=== PATIENT | female | born 1950 | race Caucasian/White ===

== ENCOUNTER 2022-04-18 16:30 | Emergency (ER) | payer BC, SELFPAY ==
--- NOTE | ~2022-04-18 | XR_ITS ---
EXAM: XR wrist LT 2V DATE: 04/18/2022 19:51 HISTORY: post-reduction . COMPARISON: Same date at 4:57 PM. FINDINGS: Decreased mineralization. Displaced ulnar styloid fracture. Transverse fracture of the dis nathalie left radial metaphysis, with one half shaft width posterior displacement and approximately 20 deg juan posterior angulation. No lytic or blastic lesion. Scattered degenerative change most severe at t he trapeziometacarpal joint. No erosion or periosteal change. Soft tissues within normal limits. IMPRESSION: Improved alignment post reduction, with residual posterior displacement and angulation. Reviewed, dictated and finalized at location K. IMPRESSION: Improved alignment post reduction, with residual posterior displace ment and angulation.
--- NOTE | ~2022-04-18 | XR_ITS ---
EXAM: XR wrist LT 2V DATE: 04/18/2022 20:41 HISTORY: post-reduction #2 . COMPARISON: Same date at 7:45 PM. FINDINGS/IMPRESSION: Unchanged alignment of the distal left radial fracture with persistent posterior angulation and displacement. Reviewed, dictated and finalized at location K.
--- NOTE | ~2022-04-18 | XR_ITS ---
XR wrist LT 2V 04/18/2022 17:06 Indication: Left wrist pain after fall Procedure: 2 views left wrist Comparison: No prior studies for comparison. Findings: There is a comminuted likely intra-articular fracture distal aspect of the radius with dors al displacement and angulation. Lateral view limited by rotation. There is an ulnar styloid avulsion fracture. 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 Impression: 1: Comminuted, likely intra-articular fracture distal aspect of the radius with dorsal displacement a nd angulation. 2: Ulnar styloid avulsion fracture. Reviewed, dictated and finalized at location A. Impression: 1: Comminuted, likely intra-articular fracture distal aspect of the radius with dorsal displacement and angulation. 2: Ulnar styloid avulsion fracture.
[2022-04-18 16:49] VITALS: BP 166/66; PULSE 83; RESP 18; TEMP 36.6; O2SAT 100
--- NOTE | 2022-04-18 18:11 | ED.UPPEXIN ---
HPI - Extremity Injury (Upper) General Chief Complaint: Extremity Injury, Upper Stated Complaint: L arm injury Time Seen by Provider: 04/18/22 17:49 Source: patient Mode of arrival: ambulatory Limitations: no limitations History of Present Illness HPI narrative: This is a 71-year-old female that presents to the emergency department for left wrist injury sustained just prior to arrival. Reports she on a stool that was maybe a foot high. She fell off of the stool and caught herself with her left wrist. Reports swelling and pain to the area. She did not hit her head or lose consciousness. Reports decreased range of motion due to pain. Denies numbness. Related Data Allergies Allergy/AdvReac Type Severity Reaction Status Date / Time No Known Allergies Allergy Verified 04/18/22 17:51 Review of Systems Review of Systems: CONSTITUTIONAL: Denies fever MUSCULOSKELETAL: Reports joint pain, and myalgia. NEUROLOGIC: Denies numbness All systems reviewed & are unremarkable except as noted in HPI and below PMFSH Past Medical History Medical History (Updated 04/18/22 @ 21:03 by Shirley Ward PA-C) No active medical problems Social History Social History (Updated 04/18/22 @ 18:12 by Shirley Ward PA-C) Smoking status: Never smoker Exam Narrative: GENERAL: Well-appearing, well-nourished, and in no acute distress. HEAD: Normocephalic, atraumatic. EYES: EOMI. CHEST: No respiratory distress. HEART: Regular rate EXTREMITIES: Left wrist with mild to moderate swelling with obvious deformity. Normal radial pulse. Normal sensation SKIN: Warm, dry, no rash. NEURO: No focal deficits. Alert and oriented x3. PSYCH: Normal mood and affect Course Vital Signs Vital signs: Vital Signs Temperature 97.8 F 04/18/22 16:49 Pulse Rate 83 04/18/22 16:49 Respiratory Rate 18 04/18/22 16:49 Blood Pressure 166/66 H 04/18/22 16:49 Pulse Oximetry 100 04/18/22 16:49 Oxygen Delivery Room Air 04/18/22 16:49 Temperature 97.8 F 04/18/22 16:49 Pulse Rate 76 04/18/22 18:16 Respiratory Rate 18 04/18/22 16:49 Blood Pressure 149/70 H 04/18/22 18:16 Pulse Oximetry 100 04/18/22 16:49 Oxygen Delivery Room Air 04/18/22 16:49 Procedures Orthopedic Fracture Reduction Fracture #1: Fracture Reduction date: 04/18/22 Time Out Performed: Yes Side: left Fracture Reduction Location: radius and ulna Analgesia: hematoma block and other (fentanyl) Pre-Procedure Neuro Vascular Exam: normal Technique: direct manipulation Post Reduction X-rays Demonstrate: acceptable reduction Post-reduction neuro exam: intact Post-reduction vascular exam: intact Splint Applied: Yes Patient Tolerated Procedure: well and no complications MDM - Extremity Injury (Upper) MDM Narrative Medical decision making narrative: Patient presents the emergency department after a fall today with left wrist injury. Denies any other injuries or trauma. She is neurovascularly intact. Left wrist x-ray shows a comminuted intra-articular fracture of the distal aspect of the radius with dorsal displacement and angulation. Also shows ulnar styloid avulsion fracture. Wrist was reduced by myself. Postreduction x-ray showing improvement in alignment. Patient neurovascularly intact. She is actually out of town. Prefers to follow-up with her orthopedic surgeon back home. I encouraged her to call in the morning to make a follow-up appointment in the next couple of days. She was given warnings to return to the ER Imaging Data Radiologist's impression: ITS Impressions Wrist X-Ray 04/18/22 17:17 Impression: 1: Comminuted, likely intra-articular fracture distal aspect of the radius with dorsal displacement and angulation. 2: Ulnar styloid avulsion fracture. Wrist X-Ray 04/18/22 19:54 IMPRESSION: Improved alignment post reduction, with residual posterior displacement
[2022-04-18 18:14] VITALS: BP 163/66
[2022-04-18 18:16] VITALS: BP 149/70; PULSE 76
[2022-04-18] MEDS: fentaNYL CITRATE INJ (*CRX) 100 MCG/2 ML VIAL 50 MCG IV PUSH (19:27)
[2022-04-18 19:30] VITALS: BP 157/67; PULSE 81; RESP 16; O2SAT 100
[2022-04-18 20:30] VITALS: BP 150/65; PULSE 79; RESP 20; O2SAT 100
[2022-04-18 21:20] VITALS: BP 163/86; PULSE 88; RESP 16; O2SAT 97
== END 2022-04-18 21:20 | disposition home or self-care (01) ==
PROVIDERS: Emergency Provider Emergency Medicine
DX: S52.592A Other fractures of lower end of left radius, initial encounter for closed fracture (principal); S52.612A Displaced fracture of left ulna styloid process, initial encounter for closed fracture; W08.XXXA Fall from other furniture, initial encounter
CPT/HCPCS: 25600; 73100; 96374; 99285; A4565; J3010